=== PATIENT | female | born 1950 | race Caucasian/White ===

== ENCOUNTER 2021-09-16 00:33 | Observation (INO) | payer MEDICARE, MEDICAID ==
[2021-09-16] MEDS ORDERED: Morphine 4 MG/ML VIAL ONE (00:58)
[2021-09-16] MEDS ORDERED: Ondansetron PF 4 MG/2 ML Vial ONE (00:59)
[2021-09-16 01:29] LABS: Hemoglobin 15.1 g/dL (12.0-15.5); Mean Corpuscular HGB CONC 33.1 g/dL (32.0-36.0); Mean Corpuscular Hemoglobin 29.7 pg (27.0-33.0); Mean Corpuscular Volume 89.6 fl (81.6-98.3); Mean Platelet Volume 10.9 fl (7.4-10.4); Platelet Count 286 10x3/uL (150-450); RBC Distribution Width 13.4 % (11.5-14.5); Red Blood Cell (RBC) Count 5.09 10x6/uL (3.90-5.03); White Blood Cell (WBC) Count 13.4 10x3/uL (3.5-10.5)
[2021-09-16 01:46] LABS: ALT (SGPT) 21 U/L (8-55); AST (SGOT) 18 U/L (5-34); Albumin 4.2 g/dL (3.4-4.8); Alkaline Phosphatase 79 U/L (40-110); Anion Gap 21 mmol/L (10-20); BUN (Urea Nitrogen) 19 mg/dL (9.8-20.1); Bilirubin, Total 0.6 mg/dL (0.2-1.2); Calc. Creatinine Clearance 0 mL/min (70-130); Calcium 10.2 mg/dL (7.8-10.44); Carbon Dioxide 19 mmol/L (23-31); Chloride 104 mmol/L (98-107); Globulin 2.7 g/dL (2.4-3.5); Glucose 186 mg/dL (83-110); Lipase 56 U/L (8-78); MDiff Complete? YES; Potassium 4.1 mmol/L (3.5-5.1); Protein, Total 6.9 g/dL (5.8-8.1); Sodium 140 mmol/L (136-145)
[2021-09-16 01:51] LABS: Band 44 % (5-11); Lymphocytes 3 % (21-51); Metamyelocyte 2 % (0-0); Monocytes 8 % (0-10); Neutrophil 40 % (42-75); Reactive Lymphocytes 3 % (0-10)
[2021-09-16 01:53] LABS: Platelet Morphology Comment Appears Adequate; Reflex for Review?? YES; Toxic Granulation SLIGHT; Vacuoles SLIGHT
[2021-09-16] MEDS ORDERED: Piperacillin/Tazobactam 3.375 GM VIAL ONE (01:56)
[2021-09-16 04:55] LABS: Lactic Acid 3.5 mmol/L (0.5-2.2)
[2021-09-16 06:02] LABS: Bilirubin Neg (Negative); Blood, Urine Negative (Negative); Clarity Slightly Cloudy (Clear); Glucose, Urine (Dipstick) Normal (Negative); Ketone, Urine Negative (Negative); Leukocyte 500 (Negative); Nitrite Negative (Negative); Protein, Urine (Dipstick) 30 mg/dl (Neg-Trace); Specific Gravity, Urine 1.015 (1.002-1.036); Urobilinogen Normal mg/dL (Less than 2)
[2021-09-16] MEDS ORDERED: ABX FS PRN (06:06)
[2021-09-16] MEDS ORDERED: [UNRECOGNIZED DRUG - OTHER] FS PRN (06:06)
[2021-09-16] MEDS ORDERED: Acetaminophen 325 MG TAB PO PRN (06:15)
[2021-09-16] MEDS ORDERED: Ondansetron PF 4 MG/2 ML Vial IVP PRN (06:15)
[2021-09-16] MEDS ORDERED: Milk Of Magnesia 30 ML UDCUP PO PRN (06:15)
[2021-09-16] MEDS ORDERED: Ondansetron ODT 4 MG TAB PO PRN (06:15)
[2021-09-16 06:17] LABS: Bacteria/HPF 1+ HPF (None Seen); RBC/HPF 0-3 HPF (0-3); Renal Epithelial 0-3 HPF (None Seen); Transitional Epithelial 0-3 HPF (None Seen)
[2021-09-16 06:49] LABS: Magnesium 1.7 mg/dL (1.6-2.6)
[2021-09-16 07:29] VITALS: BMI 42.5
[2021-09-16] MEDS ORDERED: VANCOMYCIN 1.75 GM/350 ML BAG 1.75 GM in Premix Bag 1 BAG IVPB SCH (08:00)
[2021-09-16] MEDS: Piperacillin/Tazobactam 3.375 GM in Sodium Chloride 0.9% 100 ML IVPB SCH ×2 (08:12→17:20)
[2021-09-16] MEDS ORDERED: Enoxaparin Sodium 40 MG/0.4 ML SYRINGE SC SCH (09:00)
[2021-09-16] MEDS ORDERED: Atenolol 50 MG TAB PO SCH (09:00)
[2021-09-16] MEDS ORDERED: Lisinopril 20 MG TAB PO SCH (09:00)
[2021-09-16 09:52] LABS: Lactic Acid 4.1 mmol/L (0.5-2.2)
[2021-09-16] MEDS: Lactated Ringer's 1,000 ML IV SCH ×3 (10:32→23:33)
[2021-09-16] MEDS ORDERED: Iopamidol 300 61% 100 ML VIAL FS ONE (14:38)
[2021-09-16 16:51] LABS: Lactic Acid 1.3 mmol/L (0.5-2.2)
[2021-09-16] MEDS ORDERED: Vancomycin HCl 1.5 GM in Sodium Chloride 0.9% 250 ML 300 ML IVPB SCH (19:00)
[2021-09-16 20:16] LABS: Bilirubin Neg (Negative); Blood, Urine 10 (Negative); Clarity Cloudy (Clear); Glucose, Urine (Dipstick) Normal (Negative); Ketone, Urine Negative (Negative); Leukocyte 500 (Negative); Nitrite Negative (Negative); Protein, Urine (Dipstick) 30 mg/dl (Neg-Trace); Specific Gravity, Urine 1.015 (1.002-1.036); Urobilinogen Normal mg/dL (Less than 2)
[2021-09-16 20:28] LABS: RBC/HPF 0-3 HPF (0-3)
[2021-09-16 20:29] LABS: Bacteria/HPF 3+ HPF (None Seen); Squamous Epithelial 0-3 HPF (0-3)
[2021-09-17] MEDS: Piperacillin/Tazobactam 3.375 GM in Sodium Chloride 0.9% 100 ML IVPB SCH ×2 (00:15→10:26)
[2021-09-17 01:01] LABS: SARS-CoV-2 PCR by NAA Not Detected (NotDetected)
[2021-09-17 04:45] LABS: #Eosinphils 0.1 10x3/uL (0.0-0.5); #Monocytes 0.5 10x3/uL (0.0-1.1); #Neutrophils 2.8 10x3/uL (1.5-8.4); %Basophils 0.4 % (0.0-2.0); %Eosinophils 2.4 % (0.0-6.0); %Lymphocytes 32.4 % (18.0-47.0); %Monocytes 8.9 % (0.0-10.0); %Neutrophils 55.5 % (40.0-75.0); Hemoglobin 11.7 g/dL (12.0-15.5); Mean Corpuscular HGB CONC 32.6 g/dL (32.0-36.0); Mean Corpuscular Hemoglobin 29.8 pg (27.0-33.0); Mean Corpuscular Volume 91.6 fl (81.6-98.3); Mean Platelet Volume 10.3 fl (7.4-10.4); Platelet Count 196 10x3/uL (150-450); RBC Distribution Width 14.1 % (11.5-14.5); Red Blood Cell (RBC) Count 3.92 10x6/uL (3.90-5.03)
[2021-09-17 05:22] LABS: Anion Gap 12 mmol/L (10-20); BUN (Urea Nitrogen) 13 mg/dL (9.8-20.1); Calc. Creatinine Clearance 115 mL/min (70-130); Calcium 7.8 mg/dL (7.8-10.44); Carbon Dioxide 23 mmol/L (23-31); Chloride 110 mmol/L (98-107); Glucose 95 mg/dL (83-110); Potassium 3.6 mmol/L (3.5-5.1); Sodium 141 mmol/L (136-145)
[2021-09-17] MEDS: Lactated Ringer's 1,000 ML IV SCH (06:41)
[2021-09-17 08:00] VITALS: TEMP 97.7
[2021-09-17] MEDS ORDERED: Vancomycin 1.5 GRAM/300 ML BAG 1.5 GM in Premix Bag 1 BAG IVPB SCH (09:00)
[2021-09-17] MEDS ORDERED: Atenolol 50 MG TAB PO SCH (09:00)
[2021-09-17] MEDS ORDERED: Lisinopril 20 MG TAB PO SCH (09:00)
[2021-09-17] MEDS ORDERED: Hydrochlorothiazide 25 MG TAB PO SCH (09:00)
[2021-09-17] MEDS ORDERED: Vancomycin 1.5 GRAM/300 ML BAG ONE (09:11)
[2021-09-17 09:19] VITALS: BP 127/67
== END 2021-09-17 10:45 | disposition home or self-care (01) ==
LOC: CSHERS 00:33 → CSHTELE 06:48
PROVIDERS: ADMIT Family Medicine; ATTEND Internal Medicine
DX: K52.9 Noninfective gastroenteritis and colitis, unspecified (principal); E86.9 Volume depletion, unspecified; K21.9 Gastro-esophageal reflux disease without esophagitis; I12.9 Hypertensive chronic kidney disease with stage 1 through stage 4 chronic kidney disease, or unspecified chronic kidney disease; N18.30 Chronic kidney disease, stage 3 unspecified; E66.01 Morbid (severe) obesity due to excess calories; Z90.49 Acquired absence of other specified parts of digestive tract; Z88.6 Allergy status to analgesic agent
CPT/HCPCS: 71045; 74177; 80048; 80053; 81001; 83605; 83630; 83690; 83735; 84484; 85025 ×2; 87040; 87045; 87046; 87086; 87324; 87427 ×2; 87449 ×2; 93005; 96366; 96372; 96374; 96375 ×2; 96376 ×2; 99285; G0378 ×2; U0003; U0005; 36415; 81003; 81015; 85060; J1650; J2270; J2405; J2543; J3370; J3490; J7120; Q0162; Q9967

== ENCOUNTER 2021-09-20 20:07 | Emergency (ER) | payer MEDICARE, MEDICAID ==
[2021-09-20] MEDS ORDERED: Furosemide 40 MG/4 ML VIAL ONE (21:07)
[2021-09-20 21:22] LABS: #Eosinphils 0.1 10x3/uL (0.0-0.5); #Monocytes 0.5 10x3/uL (0.0-1.1); #Neutrophils 2.7 10x3/uL (1.5-8.4); %Basophils 0.5 % (0.0-2.0); %Eosinophils 2.2 % (0.0-6.0); %Lymphocytes 46.4 % (18.0-47.0); %Monocytes 7.8 % (0.0-10.0); %Neutrophils 42.3 % (40.0-75.0); Hemoglobin 13.8 g/dL (12.0-15.5); Mean Corpuscular HGB CONC 33.3 g/dL (32.0-36.0); Mean Corpuscular Hemoglobin 29.7 pg (27.0-33.0); Mean Corpuscular Volume 89.2 fl (81.6-98.3); Mean Platelet Volume 10.3 fl (7.4-10.4); Platelet Count 266 10x3/uL (150-450); RBC Distribution Width 13.5 % (11.5-14.5); Red Blood Cell (RBC) Count 4.65 10x6/uL (3.90-5.03); White Blood Cell (WBC) Count 6.5 10x3/uL (3.5-10.5)
[2021-09-20 21:30] LABS: Bilirubin Neg (Negative); Blood, Urine Negative (Negative); Clarity Clear (Clear); Glucose, Urine (Dipstick) Normal (Negative); Ketone, Urine Negative (Negative); Leukocyte Negative (Negative); Nitrite Negative (Negative); Protein, Urine (Dipstick) Negative (Neg-Trace); Specific Gravity, Urine 1.005 (1.002-1.036); Urobilinogen Normal mg/dL (Less than 2)
[2021-09-20 21:38] LABS: ALT (SGPT) 80 U/L (8-55); AST (SGOT) 89 U/L (5-34); Albumin 4.2 g/dL (3.4-4.8); Alkaline Phosphatase 91 U/L (40-110); Anion Gap 17 mmol/L (10-20); BUN (Urea Nitrogen) 9 mg/dL (9.8-20.1); Bilirubin, Total 0.5 mg/dL (0.2-1.2); Calc. Creatinine Clearance 0 mL/min (70-130); Calcium 9.4 mg/dL (7.8-10.44); Carbon Dioxide 24 mmol/L (23-31); Chloride 107 mmol/L (98-107); Globulin 2.3 g/dL (2.4-3.5); Glucose 118 mg/dL (83-110); Potassium 3.6 mmol/L (3.5-5.1); Protein, Total 6.5 g/dL (5.8-8.1); Sodium 144 mmol/L (136-145)
== END 2021-09-20 21:52 | disposition home or self-care (01) ==
LOC: CSHERS 20:07
DX: I10 Essential (primary) hypertension (principal); E87.70 Fluid overload, unspecified; K21.9 Gastro-esophageal reflux disease without esophagitis; E66.9 Obesity, unspecified; Z79.899 Other long term (current) drug therapy
CPT/HCPCS: 71045; 80053; 81003; 83880; 84484; 85025; 93005; 96374; J1940